=== PATIENT | male | born 1965 | race Two or more races ===

== ENCOUNTER 2023-08-27 10:21 | Outpatient (CLI) | payer OTHER ==
[~2023-08-27 10:21] MED LIST: ARNICA; DICLOFENAC POTASSIUM; ORPHENADRINE CITRATE; RANITIDINE 150MG; SULFAMETH
== END 2023-08-27 10:26 | disposition home or self-care (01) ==
LOC: SONOGRAMA 10:21
PROVIDERS: ATTEND Pathology Anatomic Pathology & Clinical Pathology
DX: C76.0 Malignant neoplasm of head, face and neck (principal); E04.1 Nontoxic single thyroid nodule